=== PATIENT | male | born 1990 | race Two or more races ===

== ENCOUNTER 2017-02-21 10:36 | Emergency (ER) | payer OTHER ==
[~2017-02-21] VITALS: Ht 188 cm; Wt 86.2 kg
[2017-02-21 11:47] VITALS: BP 141/77
[2017-02-21] MEDS ORDERED: IBUPROFEN 800 MG TAB PO ONE (12:15)
== END 2017-02-21 12:57 | disposition home or self-care (01) ==
LOC: EDBD 10:36 → ER 10:42
DX: S42.022A Displaced fracture of shaft of left clavicle, initial encounter for closed fracture (principal); S16.1XXA Strain of muscle, fascia and tendon at neck level, initial encounter; S40.812A Abrasion of left upper arm, initial encounter; V43.52XA Car driver injured in collision with other type car in traffic accident, initial encounter; Y93.89 Activity, other specified; Y99.8 Other external cause status; Y92.488 Other paved roadways as the place of occurrence of the external cause
CPT/HCPCS: 73000